=== PATIENT | male | born 2000 | race Two or more races ===

== ENCOUNTER 2020-12-21 19:38 | Emergency (ER) | payer MEDICAID ==
[~2020-12-21] VITALS: Ht 172.7 cm; Wt 70.0 kg
[2020-12-21 21:48] VITALS: BP 115/66
== END 2020-12-21 22:21 | disposition home or self-care (01) ==
LOC: ER 19:38
DX: M79.18 Myalgia, other site (principal); V43.52XA Car driver injured in collision with other type car in traffic accident, initial encounter; Y93.89 Activity, other specified; Y92.488 Other paved roadways as the place of occurrence of the external cause
CPT/HCPCS: 99281

== ENCOUNTER 2023-03-27 21:22 | Emergency (ER) | payer MEDICAID, OTHER ==
[~2023-03-27] VITALS: Ht 165.1 cm; Wt 63.0 kg
[2023-03-27 21:26] VITALS: BP 123/89; O2SAT 99
[2023-03-28] MEDS ORDERED: IBUPROFEN 600MG TABLET PO NR (00:30)
[2023-03-28] MEDS ORDERED: CYCLOBENZAPRINE 10MG TABLET PO ONE (00:45)
[2023-03-28] MEDS ORDERED: IBUP-2029 MT (01:43)
[2023-03-28 02:22] VITALS: PULSE 78; RESP 15; TEMP 98.2
== END 2023-03-28 02:23 | disposition home or self-care (01) ==
LOC: ER 21:29
DX: M79.604 Pain in right leg (principal)
CPT/HCPCS: 73560; 93971; 99284

== ENCOUNTER 2023-04-09 20:55 | Emergency (ER) | payer OTHER ==
[~2023-04-09] VITALS: Ht 170.2 cm; Wt 73.0 kg
[~2023-04-09 20:55] MED LIST: IBUP-2029 MT
[2023-04-09 21:07] VITALS: O2SAT 97
[2023-04-09 21:38] LABS: CLARITY URINE CLEAR (CLEAR); COLOR URINE YELLOW (YELLOW); KETONES URINE 1+ (NEGATIVE); LEUKOCYTE ESTERASE URINE NEGATIVE (NEGATIVE); NITRITE URINE NEGATIVE (NEGATIVE); OCCULT BLOOD URINE NEGATIVE (NEGATIVE); PH URINE 6.5 (4.5-8.0); PROTEIN URINE NEGATIVE (NEGATIVE); SPECIFIC GRAVITY URINE 1.021 (1.005-1.030)
[2023-04-09] MEDS: LIDOCAINE 5% PATCH TOP SCH ×2 (22:00→22:17)
[2023-04-09] MEDS ORDERED: CYCLOBENZAPRINE 10MG TABLET PO ONE (22:00)
[2023-04-09] MEDS ORDERED: KETOROLAC 30MG/ML VIAL IM ONE (22:00)
[2023-04-09 22:17] VITALS: BP 122/80
[2023-04-09] MEDS ORDERED: CYCL5TAB MT (22:34)
[2023-04-09] MEDS ORDERED: LIDO700A15 TP (22:34)
[2023-04-09] MEDS ORDERED: NAPR-681 MT (22:34)
[2023-04-09] MEDS ORDERED: ACET-2708 MT (22:34)
[2023-04-09 22:47] VITALS: PULSE 76; RESP 20; TEMP 98
== END 2023-04-09 22:45 | disposition home or self-care (01) ==
LOC: ER 20:55
DX: M54.42 Lumbago with sciatica, left side (principal); Z79.899 Other long term (current) drug therapy
CPT/HCPCS: 81003; 96372; 99283; J1885; Z7610; 99285